=== PATIENT | male | born 1980 | race African-American/Black ===

== ENCOUNTER 2019-03-25 04:25 | Emergency (ER) | payer BC, MEDICAID ==
[~2019-03-25] VITALS: Ht 177.8 cm; Wt 81.8 kg
[2019-03-25] MEDS ORDERED: IBUPROFEN 600 MG TABLET PO ONE (05:00)
[2019-03-25 05:29] VITALS: BP 125/72
== END 2019-03-25 06:06 | disposition home or self-care (01) ==
LOC: EMS 04:28
DX: S63.92XA Sprain of unspecified part of left wrist and hand, initial encounter (principal); F17.210 Nicotine dependence, cigarettes, uncomplicated; W22.8XXA Striking against or struck by other objects, initial encounter; Y93.89 Activity, other specified; Y92.89 Other specified places as the place of occurrence of the external cause; Y99.8 Other external cause status
CPT/HCPCS: 29280; 99406

== ENCOUNTER 2019-05-31 06:06 | Emergency (ER) | payer BC, MEDICARE ==
[~2019-05-31] VITALS: Ht 177.8 cm; Wt 81.8 kg
[2019-05-31 06:20] VITALS: BP 116/72
== END 2019-05-31 07:09 | disposition home or self-care (01) ==
LOC: EMS 06:06
DX: J01.90 Acute sinusitis, unspecified (principal); B96.89 Other specified bacterial agents as the cause of diseases classified elsewhere